=== PATIENT | male | born 1945 | race African-American/Black ===

== ENCOUNTER → 2019-11-11 | Outpatient (CLI) | payer MEDICARE ==
--- NOTE | 2019-11-11 10:07 | Diagnostic Imaging Report ---
Renal ultrasound Clinical History: Chronic renal insufficiency Discussion: Sonographic evaluation of the kidneys is performed. The kidneys have normal size and cortical echogenicity. The right kidney measures 10.1 cm in length. The left kidney measures 9.6 cm in length. There is no hydronephrosis or shadowing renal calculus. In the interpolar region right kidney, a 1.8 x 1.6 x 2.0 cm anechoic lesion is noted most compatible with a cyst. No perinephric fluid collection is seen. Survey images of the bladder demonstrate no abnormality. Impression: 1. Small right renal cyst, otherwise, unremarkable renal ultrasound. Signed by: Dr. Suresh Barlow MD on 11/11/2019 10:05 AM
== END ==
LOC: US 08:36
PROVIDERS: ATTEND Urology
DX: N18.9 Chronic kidney disease, unspecified (principal)
CPT/HCPCS: 76770